=== PATIENT | male | born 1960 | race Two or more races ===

== ENCOUNTER 2018-07-03 22:29 | Emergency (ER) | payer OTHER ==
--- NOTE | 2018-07-03 23:04 | PDOC ---
Attending Attestation - HPI HPI: 07/04/18 00:03 The patient is a 57-year-old male with past medical history significant for Schizophrenia and UTI (20 years ago) presents to the emergency department from [facility] with Malodorous urine. The patient reports since yesterday hes been having foul smelling urine, denies dysuria, hematuria frequency or urgency to urinate. The patient denies penile discharge or bleeding but endorses pain. Denies a history of STD, Gonorrhea or chlamydia. Denies fever, chills, abdominal pain, diarrhea, or constipation. Denies any recent changes to medication. The patient states he is eating and drinking regularly. The patient reports his last bowel movement was earlier today, denies melena or hematochezia. Allergies: NKA Medication: According to patients records, Aricept 10mg, Haldol 5mg, Methadone 5mg, ASA EC 81mg, Pepcid 20mg, Depakote ER 500mg, Haldol dec inj 100mg inject 2 ml intramuscularly every month (given by MD) Social history: The patient reports he is sexually active. Daily use of tobacco is reported. Alcohol use is reported. No recreational drug use is reported. Surgical history: None reported. PCP: Tamy Goodman MD - Physicial Exam PE: 07/04/18 00:10 GENERAL: Awake, alert, and fully oriented, in no acute distress HEAD: No signs of trauma EYES: PERRLA, EOMI, sclera anicteric, conjunctiva clear ENT: Auricles normal inspection, hearing grossly normal, nares patent, oropharynx clear without exudates. Moist mucosa NECK: Normal ROM, supple, no lymphadenopathy, JVD, or masses LUNGS: Breath sounds equal, clear to auscultation bilaterally. No wheezes, and no crackles HEART: Regular rate and rhythm, normal S1 and S2, no murmurs, rubs or gallops ABDOMEN: Soft, nontender, normoactive bowel sounds. No guarding, no rebound. No masses GENITOURINARY: (+) External genitalia normal and circumcised, no discharge, no rash or lesions. No scrotal tenderness. No testicular tenderness. EXTREMITIES: Normal range of motion, no edema. No clubbing or cyanosis. No cords, erythema, or tenderness NEUROLOGICAL: Cranial nerves II through XII grossly intact. Normal speech. SKIN: Warm, Dry, normal turgor, no rashes or lesions noted. - Medical Decision Making 07/04/18 00:10 Documentation prepared by Jacqueline Malagon, acting as medical officer psychiatry for Vanda Robles DO. <Jacqueline Malagon - Last Filed: 07/04/18 00:03> - Resident Resident Name: Kimber Valiente - ED Attending Attestation I have performed the following: I have examined & evaluated the patient, The case was reviewed & discussed with the resident, I agree w/resident's findings & plan, Exceptions are as noted - Medical Decision Making 07/03/18 23:04 I, Dr. Vanda Robles DO, attest that this document has been prepared under my direction and personally reviewed by me in its entirety. I further attest, that it accurately reflects all work, treatment, procedures and medical decision -making performed by me. 07/03/18 23:44 57yo male from [place] with foul smelling urine since yesterday -denies hx of STI -denies rashes or lesions to genitalia -denies discharge -no abd pain -no back pain -no flank pain -no f/c -no n/v/d -will send ua/ucx -pt wtih hx of schizophrenia 07/04/18 02:13 ua negative for UTI, +ketones and protein pt is nontoxic in appearance pt drinking large bottle water discussed ua results pt stable for d/c to [facility] <Vanda Robles - Last Filed: 07/04/18 02:15> Discharge Disposition - Discharge Dispostion Decision to Admit order: No <Vanda Robles - Last Filed: 07/04/18 02:15> - Diagnosis Dehydration - Discharge Dispostion Disposition: HOME Condition at time of disposition: Stable - Referrals Referrals: Tamy Singletary MD [Primary Care Provider] - - Patient Instructions Printed Discharge Instructions: DI for Dehydration -- Adult Additional Instructions: Please drink plenty of water. Your urine culture is pending. Please return to the ED with any further concerns or complaints. Please follow up with your PMD. - Post Discharge Activity
[2018-07-03 23:20] VITALS: BMI 30.1
--- NOTE | 2018-07-03 23:34 | PDOC ---
History of Present Illness - General Chief Complaint: Urinary Problem Stated Complaint: UTI Time Seen by Provider: 07/03/18 22:59 - History of Present Illness Initial Comments: 57yo M complaining of foul-smelling urine x 1-2 days. Patient had an asymptomatic UTI about 20 years ago. Denies history of kidney stones or prostate issues. No frequency, dysuria, or urgency. Patient reports that he is able to empty all the way when he urinates. Denies penile discharge or genital lesions. No fever, chills, chest pain, or shortness of breath. Past History - Past Medical History Allergies/Adverse Reactions: Allergies Allergy/AdvReac Type Severity Reaction Status Date / Time No Known Allergies Allergy Verified 07/03/18 23:15 Home Medications: Ambulatory Orders Methadone (Detox) [Dolophine -] 30 mg PO DAILY 07/03/18 Zolpidem Tartrate [Ambien] 5 mg PO HS 07/03/18 - Suicide/Smoking/Psychosocial Hx Smoking History: Current some day smoker Have you smoked in the past 12 months: Yes Information on smoking cessation initiated: No Hx Alcohol Use: Yes Drug/Substance Use Hx: No Review of Systems - Review of Systems Comments:: Constitutional: no fever, no chills Cardiovascular: no chest pain, no palpitations Respiratory: no cough, no shortness of breath Gastrointestinal: no abdominal pain, no nausea, no vomiting Genitourinary: no dysuria, no frequency Musculoskeletal: no myalgia, no arthralgia Skin: no rash, no itching Neurologic: no headache, no dizziness *Physical Exam - Vital Signs Last Vital Signs Temp Pulse Resp BP Pulse Ox 99.4 F 81 18 110/84 98 07/03/18 22:30 07/03/18 22:30 07/03/18 22:30 07/03/18 22:30 07/03/18 22:30 - Physical Exam Comments: General: Awake, alert, and fully oriented, in no acute distress Head: no signs of trauma Eyes: EOMI, sclera anicteric ENT: Moist mucus membranes, Neck: Normal ROM, supple Lungs: Lungs clear, Normal breath sounds Cardio: Regular rhythm, S1 and S2 present Abdomen: Soft, nontender, normal bowel sounds. No guarding, no rebound, no masses Extremities: Normal range of motion, Distal pulses present. SKIN: Warm, Dry, normal turgor, no rashes or lesions noted Neurologic: Cranial nerves II through XII grossly intact. Normal speech Medical Decision Making - Medical Decision Making 57yo M complaining of foul-smelling urine. UA and Urine culture ordered. Normal abdominal and exam. UA negative. Will discharge. 07/04/18 03:31 *DC/Admit/Observation/Transfer Diagnosis at time of Disposition: Dehydration - Discharge Dispostion Disposition: HOME Condition at time of disposition: Stable - Referrals Referrals: Tamy Singletary MD [Primary Care Provider] - - Patient Instructions Printed Discharge Instructions: DI for Dehydration -- Adult Additional Instructions: Please drink plenty of water. Your urine culture is pending. Please return to the ED with any further concerns or complaints. Please follow up with your PMD. - Post Discharge Activity
[2018-07-04 01:43] LABS: URINE APPEARANCE CLEAR; URINE BILIRUBIN NEGATIVE (<2.0 mg/dL); URINE COLOR AMBER; URINE GLUCOSE (UA) NEGATIVE (NEGATIVE); URINE KETONE TRACE (NEGATIVE); URINE LEUK ESTERASE NEGATIVE (NEGATIVE); URINE NITRITE NEGATIVE (NEGATIVE)
[2018-07-04 02:00] LABS: URINE PROTEIN 1+ (NEGATIVE)
[2018-07-04 02:01] LABS: EPI CELLS RARE /HPF (FEW); URINE BACTERIA RARE /hpf (NONE SEEN); URINE HYALINE CAST 3 /lpf; URINE MUCUS MANY
[2018-07-04 02:30] VITALS: BP 114/78; PULSE 79; TEMP 98.5
== END 2018-07-04 03:44 | disposition home or self-care (01) ==
LOC: JER 22:29
DX: E86.0 Dehydration (principal); F20.9 Schizophrenia, unspecified; F17.210 Nicotine dependence, cigarettes, uncomplicated
CPT/HCPCS: 81003; 81015; 87086; 99281-25